=== PATIENT | female | born 1985 | race Caucasian/White ===

== ENCOUNTER 2017-03-03 11:34 | Emergency (ER) | END 2017-03-03 14:30 | disposition home or self-care (01) | DX: S69.92XA Unspecified injury of left wrist, hand and finger(s), initial encounter (principal); X58.XXXA Exposure to other specified factors, initial encounter; Y92.9 Unspecified place or not applicable | CPT/HCPCS: 29130; 73130; Z7502 ==

== ENCOUNTER 2017-08-18 07:10 | Inpatient (IN) | END 2017-08-21 18:37 | disposition home or self-care (01) | DRG 766 ==

== ENCOUNTER 2018-10-12 16:05 | Emergency (ER) | payer OTHER ==
[~2018-10-12] VITALS: Wt 89.0 kg
[~2018-10-12 16:05] MED LIST: ACET500C5 PO
[2018-10-12 16:11] VITALS: BP 143/90; PULSE 91; RESP 18
[2018-10-12] MEDS ORDERED: SOD CHLORIDE 0.9% 1,000 ML IV STA (16:19)
[2018-10-12] MEDS ORDERED: FAMOTIDINE 20 MG INJ IV ONE (16:30)
[2018-10-12] MEDS ORDERED: DIPHENHYDRAMINE 50 MG INJ IV ONE (16:30)
[2018-10-12] MEDS ORDERED: DEXAMETHASONE 10 MG/ML 1 ML INJ IV ONE (16:30)
[2018-10-12] MEDS ORDERED: BEN25 PO (17:57)
[2018-10-12] MEDS ORDERED: PRED20TA PO (17:57)
[2018-10-12] MEDS ORDERED: EPIN0.3P4 INJ (17:58)
--- NOTE | 2018-10-12 18:04 | ERD ---
ER Documentation Chief Complaint Chief Complaint RASH AFTER EATING SHRIMP HPI 33-year female presents with swelling and redness to the face and trunk and extremities after eating shrimp today. She has eaten shrimp in the past without a problem. Denies shortness of breath, fevers. Rash is somewhat improved with Benadryl at home. ROS All systems reviewed and are negative except as per history of present illness. Medications Home Meds Active Scripts Epinephrine (Epipen 2-Jose) 0.3 Mg/0.3 Ml Pen.injctr, 1 EA INJ ONCE PRN for ALLERGIC REACTION, #1 EA Prov:PORTER HOGAN MD 10/12/18 Diphenhydramine Hcl* (Benadryl*) 25 Mg Cap, 25 MG PO Q6, #15 CAP Prov:PORTER HOGAN MD 10/12/18 Prednisone* (Prednisone*) 20 Mg Tab, 40 MG PO DAILY for 4 Days, TAB Prov:PORTER HOGAN MD 10/12/18 Acetaminophen* (Tylophen*) 500 Mg Capsule, 1 CAP PO Q6H PRN for PAIN AND OR ELEVATED TEMP, #20 CAP Prov:MELI MORALES PA-C 03/03/17 Allergies Allergies: Coded Allergies: No Known Allergy (Unverified , 03/03/17) PMhx/Soc History of Surgery: Yes (caesarian section) Anesthesia Reaction: No Hx Neurological Disorder: No Hx Respiratory Disorders: No Hx Cardiac Disorders: No Hx Psychiatric Problems: No Hx Miscellaneous Medical Probl: No Hx Alcohol Use: No Hx Substance Use: No Hx Tobacco Use: No FmHx Family History: No diabetes, No coronary disease, No other Physical Exam Vitals Vital Signs Date Temp Pulse Resp B/P (MAP) Pulse Ox O2 O2 Flow FiO2 Time Delivery Rate 10/12/18 91 18 143/90 97 16:11 (107) Physical Exam . Redness which is blanching of the face const: No acute distress Head: Atraumatic Eyes: Normal Conjunctiva ENT: Normal External Ears, Nose and Mouth. Neck: Full range of motion. No meningismus. Resp: Clear to auscultation bilaterally. No wheezing. Cardio: Regular rate and rhythm, no murmurs Abd: Soft, non tender, non distended. Normal bowel sounds Skin: No petechiae or rashes lips. Airway patent. Redness of the extremities which is blanching with no significant skin changes. Back: No midline or flank tenderness Ext: No cyanosis, or edema Neur: Awake and alert Psych: Normal Mood and Affect Results 24 hrs Current Medications Medications Dose Sig/Yayo Start Time Status Last (Trade) Ordered Route PRN Stop Time Admin Dose Reason Admin Sodium 1,000 ml @ Q1H STAT 10/12/18 DC 10/12/18 Chloride 1,000 mls/hr IV 16:19 16:27 10/12/18 17:18 50 mg ONCE ONCE 10/12/18 DC 10/12/18 Diphenhydrami IV 16:30 16:27 ne HCl 10/12/18 16:31 (Benadryl) Famotidine 20 mg ONCE ONCE 10/12/18 DC 10/12/18 (Pepcid Iv) IV 16:30 16:27 10/12/18 16:31 10 mg ONCE ONCE 10/12/18 DC 10/12/18 Dexamethasone IV 16:30 16:26 (Decadron) 10/12/18 16:31 Procedures/MDM Presents with signs and symptoms of acute allergic reaction, possibly scombroid. She was given 1 L normal saline IV, Benadryl 50 mg IV, Decadron 10 mg IV and Pepcid 20 mg IV. Rash completely resolved after observation and treatment. Patient presents with evidence of anaphylaxis, rest distress, hypoxemia. Patient felt better after observation and treatment. She will treated with continuation of prednisone, Benadryl, prescription of EpiPen, primary care follow-up and return precautions. The patient was stable with no new complaints during the ER course. Clinically, there is no current evidence to suggest me ningitis, sepsis, acute abdomen, pneumonia, stroke, acute coronary syndrome, pulmonary embolism, aortic dissection or any other emergent condition appearing to require further evaluation or hospitalization. Patient counseled regarding my diagnostic impression and care plan. Prior to discharge all questions answered. Pt agrees with treatment plan and understands strict return prec autions. Pt is instructed to follow up with primary care provider within 24-48 hours. Precautionary instructions provided including instructions to return to the ER if not improving or for any worsening or changing symptoms or concerns. Disclaimer: Inadvertent spelling and grammatical errors are likely due to EHR/dictation software use and do not reflect on the overall quality of patient care. Also, please note that the electronic time recorded on this note does not necessarily reflect the actual time of the patient encounter. Departure Diagnosis: Primary Impression: Allergic reaction Encounter type: initial encounter Qualified Codes: T78.40XA - Allergy, unspecified, initial encounter Condition: Stable Patient Instructions: Allergic Reaction, Other (General) Referrals: [facility] (PCP) Additional Instructions: Recheck for new worsening symptoms-shortness of breath, fevers. PORTER HOGAN MD October 12, 2018 18:04
== END 2018-10-12 18:12 | disposition home or self-care (01) ==
LOC: FTE 16:05
DX: T78.1XXA Other adverse food reactions, not elsewhere classified, initial encounter (principal); R21 Rash and other nonspecific skin eruption
CPT/HCPCS: 96361; 96374; 96375; J1100; J1200; J7030; Z7502; Z7610